=== PATIENT | female | born 1945 | race African-American/Black ===

== ENCOUNTER 2018-10-31 11:41 | Outpatient (RCR) | payer MEDICARE, BC ==
[2018-10-31 14:30] LABS: BASOPHILS % (AUTO) 0.9 % (0.0-2.0); EOSINOPHILS % (AUTO) 1.9 % (0.0-3.0); HEMATOCRIT 35.5 % (37.0-47.0); HEMOGLOBIN 12.4 G/DL (12.0-16.0); LYMPHOCYTES % (AUTO) 23.4 % (20.0-45.0); MEAN CORPUSCULAR VOLUME 82 FL (80-99); MONOCYTES % (AUTO) 11.8 % (1.0-10.0); NEUTROPHILS % (AUTO) 62.1 % (45.0-75.0); PLATELET COUNT 344 K/UL (150-450); RED BLOOD COUNT 4.34 M/UL (4.20-5.40); RED CELL DISTRIBUTION WIDTH 12.4 % (11.6-14.8)
== END 2018-11-14 | disposition home or self-care (01) ==
LOC: WCC 11:41
DX: L97.323 Non-pressure chronic ulcer of left ankle with necrosis of muscle (principal); E11.622 Type 2 diabetes mellitus with other skin ulcer; M86.572 Other chronic hematogenous osteomyelitis, left ankle and foot; I10 Essential (primary) hypertension
CPT/HCPCS: 11043; 11046; 36415; 83036; 84134; 85025; 87070; 87181; 87205

== ENCOUNTER 2018-10-31 12:57 | Outpatient (CLI) | payer MEDICARE, BC ==
--- NOTE | 2018-10-31 15:09 | Diagnostic Imaging Report ---
Indication: Pain, history of ankle surgery one month prior Technique: 3 views of the left ankle Comparison: none Findings: Surgical screws are seen reducing a medial malleolar fracture, which appears healed. There are a few unfused fracture fragments versus adjacent dystrophic calcifications. There is also a fracture deformity of the distal fibula, which appears fused but this cannot be stated for certain given overlying soft tissue lucencies. There is suggestion of one or more complex soft tissue ulcers of the distal ankle. The bones are diffusely osteoporotic. No definite osseous erosions or unusual periosteal reaction. Impression: Posttraumatic and postsurgical changes, as described Osteoporotic change No definite plain radiographic evidence of osteomyelitis. Note, however, limited sensitivity of plain radiographs for such. Consider nuclear medicine bone scan or MRI if there is high clinical suspicion
--- NOTE | 2018-10-31 15:11 | Diagnostic Imaging Report ---
Indication: Pain, postoperative one month ago Technique: 3 views left foot Comparison: none Findings: There is mild hallux valgus and bunion formation. Bones are diffusely osteoporotic. No acute fractures or dislocations. The joint spaces are preserved. No definite osteolytic process, osseous erosions, or unusual periosteal reaction.. Postsurgical and posttraumatic changes of the ankle are noted. Ulcerations over the lateral ankle are noted, best appreciated on concomitant ankle radiograph Impression: No definite acute bony trauma No definite plain radiographic evidence of osteomyelitis. Note, however, limited sensitivity of plain radiographs for such. Consider nuclear medicine bone scan or MRI for more sensitive characterization if there is high clinical suspicion
== END 2018-10-31 14:57 | disposition home or self-care (01) ==
LOC: LAB 12:57
DX: M86.8X7 Other osteomyelitis, ankle and foot (principal); E46 Unspecified protein-calorie malnutrition
CPT/HCPCS: 87070; 87181; 87205

== ENCOUNTER 2018-11-09 10:30 | Outpatient (CLI) | payer MEDICARE, BC ==
--- NOTE | 2018-11-10 17:11 | Diagnostic Imaging Report ---
APPROVED REPORT CPT Code: 30520 Symptoms Comments: Pain Edema Hx of Osteomyelitis Left ankle and foot LEFT LEG: Common femoral artery waveform analysis is within normal limits at rest. Color flow duplex sonography reveals minimal calcification throughout the superficial femoral, and popliteal arteries. There is no evidence of stenosis or occlusion within these segments. The tibioperoneal trunks are patent. The posterior tibial, anterior tibial and dorsalis pedis arteries are also patent. Doppler tibial artery waveform analysis is within normal limits. Ankle Brachial Index was unobtainable due to ankle wounds.
== END 2018-11-09 12:30 | disposition home or self-care (01) ==
LOC: NUM 10:30
DX: M86.9 Osteomyelitis, unspecified (principal); L08.9 Local infection of the skin and subcutaneous tissue, unspecified; E46 Unspecified protein-calorie malnutrition
CPT/HCPCS: 93926

== ENCOUNTER 2018-11-14 09:21 | Outpatient (CLI) | payer MEDICARE, BC ==
--- NOTE | 2018-11-14 15:18 | Diagnostic Imaging Report ---
Indication: Left ankle pain, ankle ulcer Technique: IV administration 25 mCi 99m technetium MDP. Flow, blood pool, and static images obtained over the feet and ankles Comparison: Reference made to plain radiograph dated 10/31/2018 Findings: Flow images demonstrate mild hyperemia of the left foot and ankle, particularly the ankle region. Flow images demonstrate increased uptake in the ankle, mostly in the region of the distal tibia and tibiotalar joint. Some lateral increased uptake is also demonstrated. There is also some prominent blood pool activity in the middle right foot. Static images demonstrate increased uptake in the region of the distal tibia or tibiotalar joint, as well as the lateral distal fibula. There is also some increased uptake in the lateral midfoot and the region of the first metatarsophalangeal joint. Impression: Abnormal flow, blood pool, and static uptake in the region of the distal tibia and/or tibiotalar joint and to lesser extent the lateral fibula. Findings could represent acute osteomyelitis. However, given available history of recent ORIF in March 2018, and recent screw removal in August 2018, as well as plain radiographic findings of distal fibular fracture deformity, findings are nonspecific and could also be related to the recent surgery and trauma note that the findings about the distal tibia and tibiotalar joint do not correlate with the plain radiographic location of the trauma and hardware so do increase the suspicion for acute osteomyelitis Abnormal activity in the midfoot and forefoot on the static images are probably related to degenerative change
== END 2018-11-14 11:21 | disposition home or self-care (01) ==
LOC: NUM 09:21
DX: M86.8X7 Other osteomyelitis, ankle and foot (principal); L97.329 Non-pressure chronic ulcer of left ankle with unspecified severity
CPT/HCPCS: 78315; A4641

== ENCOUNTER 2018-11-21 10:52 | Outpatient (RCR) | payer BC, MEDICARE ==
[~2018-11-21] VITALS: Ht 162.6 cm; Wt 77.1 kg
[2018-11-23] MEDS ORDERED: Lidocaine 4% Top Soln 50ml TOPIC ONE (11:30)
== END 2018-12-15 | disposition home or self-care (01) ==
LOC: WCC 10:52
DX: L97.323 Non-pressure chronic ulcer of left ankle with necrosis of muscle (principal); E11.622 Type 2 diabetes mellitus with other skin ulcer; M86.572 Other chronic hematogenous osteomyelitis, left ankle and foot; L97.324 Non-pressure chronic ulcer of left ankle with necrosis of bone; I10 Essential (primary) hypertension
CPT/HCPCS: 11043; 11044; 82962; 97605; G0277

== ENCOUNTER 2018-12-16 10:30 | Outpatient (RCR) | payer BC | END 2019-01-12 | disposition home or self-care (01) | LOC: WCC 10:30 | DX: L97.323 Non-pressure chronic ulcer of left ankle with necrosis of muscle (principal); L97.322 Non-pressure chronic ulcer of left ankle with fat layer exposed; E11.622 Type 2 diabetes mellitus with other skin ulcer; M86.572 Other chronic hematogenous osteomyelitis, left ankle and foot; L97.324 Non-pressure chronic ulcer of left ankle with necrosis of bone; I10 Essential (primary) hypertension; E11.9 Type 2 diabetes mellitus without complications; Z79.84 Long term (current) use of oral hypoglycemic drugs | CPT/HCPCS: 11042; 82962; 97605; G0277 ==

== ENCOUNTER 2019-01-13 10:32 | Outpatient (RCR) | payer BC ==
[~2019-01-13] VITALS: Ht 162.6 cm; Wt 77.1 kg
[2019-01-23] MEDS ORDERED: Lidocaine 4% Top Soln 50ml TOPIC ONE (16:45)
== END 2019-02-12 | disposition home or self-care (01) ==
LOC: WCC 10:32
DX: E11.622 Type 2 diabetes mellitus with other skin ulcer (principal); L97.323 Non-pressure chronic ulcer of left ankle with necrosis of muscle; L97.322 Non-pressure chronic ulcer of left ankle with fat layer exposed; M86.572 Other chronic hematogenous osteomyelitis, left ankle and foot; I10 Essential (primary) hypertension; E11.9 Type 2 diabetes mellitus without complications; Z79.84 Long term (current) use of oral hypoglycemic drugs
CPT/HCPCS: 11042; 15271; 29580; 82962; G0277; Q4106; Q4101

== ENCOUNTER 2019-02-13 08:09 | Outpatient (RCR) | payer BC ==
[~2019-02-13] VITALS: Ht 162.6 cm; Wt 77.1 kg
== END 2019-03-14 | disposition home or self-care (01) ==
LOC: WCC 08:09
DX: E11.622 Type 2 diabetes mellitus with other skin ulcer (principal); L97.323 Non-pressure chronic ulcer of left ankle with necrosis of muscle; L97.322 Non-pressure chronic ulcer of left ankle with fat layer exposed; M86.572 Other chronic hematogenous osteomyelitis, left ankle and foot; I10 Essential (primary) hypertension; Z79.84 Long term (current) use of oral hypoglycemic drugs; Z79.899 Other long term (current) drug therapy
CPT/HCPCS: 11042; 15271; 29580; 29581; 82962; G0277; Q4106; Q4101

== ENCOUNTER 2019-03-20 10:53 | Outpatient (RCR) | payer BC | END 2019-04-14 | disposition home or self-care (01) | LOC: WCC 10:53 | DX: L97.323 Non-pressure chronic ulcer of left ankle with necrosis of muscle (principal); L97.322 Non-pressure chronic ulcer of left ankle with fat layer exposed; E11.622 Type 2 diabetes mellitus with other skin ulcer; M86.572 Other chronic hematogenous osteomyelitis, left ankle and foot; I10 Essential (primary) hypertension; Z79.84 Long term (current) use of oral hypoglycemic drugs; Z79.899 Other long term (current) drug therapy | CPT/HCPCS: 11042; 29581; G0463 ==